=== PATIENT | male | born 1950 | race Caucasian/White ===

== ENCOUNTER 2016-11-11 17:49 | Emergency (ER) | payer BC, OTHER ==
[~2016-11-11] VITALS: Ht 182.9 cm; Wt 120.2 kg
[2016-11-11 17:49] VITALS: BP_SYST 171
[2016-11-11 19:25] VITALS: BP_SYST 160
== END 2016-11-11 19:25 | disposition home or self-care (01) ==
LOC: SED 17:49
DX: S43.101A Unspecified dislocation of right acromioclavicular joint, initial encounter (principal); I10 Essential (primary) hypertension; K21.9 Gastro-esophageal reflux disease without esophagitis; E11.9 Type 2 diabetes mellitus without complications; M10.9 Gout, unspecified; V19.9XXA Pedal cyclist (driver) (passenger) injured in unspecified traffic accident, initial encounter; Y93.89 Activity, other specified; Y92.89 Other specified places as the place of occurrence of the external cause; Y99.8 Other external cause status
CPT/HCPCS: 71010; 73030; 99284

== ENCOUNTER 2019-02-21 10:31 | Emergency (ER) | payer OTHER ==
[~2019-02-21] VITALS: Ht 180.3 cm; Wt 120.2 kg
[2019-02-21 10:31] VITALS: BP_SYST 152
--- NOTE | 2019-02-21 10:31 | NUR ---
Patient triaged and placed in waiting room. VSS and patient appears in no acute distress at this time. Accompanied by SELF, awaiting available bed, and MD notified of need for MSE.
--- NOTE | 2019-02-21 11:25 | NUR ---
BROUGHT BACK TO BED #4 AND REPORT GIVEN TO MAIA
--- NOTE | 2019-02-21 11:43 | NUR ---
DR GALLARDO AT BEDSIDE PERFORMING I AND D
--- NOTE | 2019-02-21 12:05 | NUR ---
PATIENT PRESENTS TO THE ER WITH TWO DAY HX OF WORSENING PAIN AND SWELLING TO LESION TO MID UPPER CHEST/LOWER NECK AREA; PATIENT TO ER #4 AT 1130 AND ERMD EVALUATION AT 1140; NO TRAUMA, NO OTHER REMARKABLE S/S
[2019-02-21 12:08] VITALS: BP_SYST 152
--- NOTE | 2019-02-21 12:08 | NUR ---
REASSESSMENT; PATIENT PROCEDURE AT BEDSIDE BY ERMD; PATIENT PREPAIRED FOR DISCHARGE; ACI GIVEN AND PATIENT INDICATED FULL UNDERSTANDING; DISCHARGED AMBULATORY; IMPROVED
== END 2019-02-21 12:08 | disposition home or self-care (01) ==
LOC: SED 10:31
DX: L02.11 Cutaneous abscess of neck (principal); Z85.46 Personal history of malignant neoplasm of prostate; E11.9 Type 2 diabetes mellitus without complications; K21.9 Gastro-esophageal reflux disease without esophagitis; I10 Essential (primary) hypertension
CPT/HCPCS: 99284